=== PATIENT | male | born 1930 | race Caucasian/White ===

== ENCOUNTER → 2017-05-27 | Outpatient (CLI) | payer OTHER, BC ==
[~2017-05-27] MED LIST: ASPI325T45 PO; OPTIRAY 320 IV PRN; ROSU20TA PO; [UNRECOGNIZED DRUG - REMARK] PO
--- NOTE | 2017-05-27 15:00 | DIAGNOSTIC IMAGING REPORT ---
ABD/PELVIS IV AND ORAL CONT HISTORY: 87 years-old Male C61 Prostate [id number] metastatic survey in a patient with history of prostate cancer. Initial exam. COMPARISON: None available. TECHNIQUE: Multiple axial CT images of the abdomen and pelvis were obtained along the intravenous administration of 93 mL Optiray 320. Oral contrast was also used. A dose lowering technique was used consistent with the principals of SEPIDEH. FINDINGS: Small right Bochdalek hernia. Groundglass opacities of the lung bases suggest atelectasis. There is no pneumoperitoneum. Prior median sternotomy. The heart is mildly enlarged with coronary arterial calcifications. Circumscribed low attenuating 6 mm lesion of the lateral left hepatic lobe seen on image 13 is nonspecific and suggests hepatic cysts. The liver is otherwise unremarkable. The spleen, pancreas and adrenal glands are within normal limits. There is vicarious excretion of contrast from mildly contracted gallbladder. The kidneys and ureters are unremarkable. Prostate is enlarged causing mass effect upon the floor of the urinary bladder contains central coarse calcifications. Bilateral fat filled hernias, left greater than right. There is moderate atherosclerotic plaquing of the abdominal aorta with a linear calcified structure along left aspect of the infrarenal abdominal aorta suspicious for chronic dissection on image 155. Similar changes are seen on image 190 the axial series. No bulky adenopathy identified to suggest metastasis. A few small left iliac chain lymph nodes are seen measuring up to 6 mm in short axis as seen on image 274. There is a small sliding-type hiatal hernia. No bowel obstruction or focal bowel wall thickening. Colonic diverticulosis without evidence of diverticulitis. Soft tissues are unremarkable. Prior left hemilaminectomy changes noted at L5-S1. No blastic bony lesions are seen to suggest metastasis. Multilevel advanced degenerative changes of the spine. IMPRESSION: 1. No acute intra-abdominal or intrapelvic abnormality identified. No definite evidence of metastatic disease. 2. Prostatomegaly with mass effect upon the floor of the urinary bladder. 3. A few scattered nonenlarged nonspecific left iliac chain lymph nodes are seen as above. No pathologically enlarged lymph nodes identified. 4. Circumscribed 6 mm low attenuating lesion of the lateral left hepatic lobe is nonspecific and suggests cyst. Attention at follow-up recommended. 5. Incidental findings include small sliding-type hiatal hernia, colonic diverticulosis without diverticulitis and prior left hemilaminectomy changes at L5-S1. The above report was generated using voice recognition software. It may contain grammatical, syntax or spelling errors. Electronically signed by: Carlos Elise M.D. 05/27/2017 2:58 PM Dictated Date/Time: 05/27/2017 2:50 PM
--- NOTE | 2017-05-27 15:38 | DIAGNOSTIC IMAGING REPORT ---
BONE SCAN WHOLE BODY CLINICAL HISTORY: Prostate cancer. COMPARISON STUDY: CT of the abdomen and pelvis May 27, 2017. TECHNIQUE: 25.1 mCi of technetium 99m MDP was injected IV at 11:48 AM on May 27, 2017. 3 hours following injection, whole body imaging was performed in the anterior and posterior projections. FINDINGS: Expected soft tissue and renal uptake is identified. Uptake within the shoulders, sternoclavicular joints and feet is degenerative. Moderate uptake within the left aspect of the spine at the L2-L3 level corresponds to disc space narrowing and osteophytosis on CT performed earlier today. Multifocal uptake within the lower cervical and thoracic spine is nonspecific but likely degenerative. No suspicious radiotracer uptake is identified. IMPRESSION: 1. No convincing scintigraphic evidence of skeletal metastatic disease. 2. Moderate multifocal uptake within the cervical and thoracic spine. Although indeterminate, this is likely degenerative. Electronically signed by: Lev Trinh M.D. 05/27/2017 3:36 PM Dictated Date/Time: 05/27/2017 3:33 PM
== END | disposition home or self-care (01) ==
LOC: C.NUCL 10:57
PROVIDERS: ATTEND Urology
DX: C61 Malignant neoplasm of prostate (principal)

== ENCOUNTER → 2017-07-08 | Outpatient (CLI) | payer OTHER, BC ==
[~2017-07-08] MED LIST changes: +GADAVIST IV PRN; -OPTIRAY 320 IV PRN
--- NOTE | 2017-07-08 15:17 | DIAGNOSTIC IMAGING REPORT ---
PROSTATE MRI COMBO CLINICAL HISTORY: 87 years-old Male presenting with PROSTATE CA. TECHNIQUE: Multisequence, multiplanar MR imaging of the prostate was performed before and after the administration of 8.5 cc of Gadavist. Additional postprocessing was performed on a separate [employer] workstation by the radiologist for 3-D volumetric segmentation of the prostate and contouring of region(s) of interest (ROD) for targeting. COMPARISON: Abdominal CT dated 05/27/2017. FINDINGS: Prostate: The prostate measures 4.7 cm in transverse diameter (DynaCAD prostate boundary segmentation volume 39 mL). There are moderate to severe changes of benign prostatic hyperplasia. Precontrast T1 weighted imaging demonstrates no evidence of intrinsic T1 hyperintensity to suggest hemorrhage. Seminal vesicles normal. Suspicious lesion(s) described below: Lesion (ActeavoaCAD ROD) : Size: At least 3 cm in maximum length. T2W: There is extensive T2 hypointensity throughout the left lobe of the prostate involving both the central and peripheral zone. There is restricted diffusion and drop in signal on the ADC maps within this region. There is extracapsular extension along the left margin. DWI: 5. Focal markedly hypointense on ADC and markedly hyperintense on high b-value DWI. DCE: Negative. No early enhancement. PI-RADS: 5. Clinically significant cancer is highly likely to present. Bladder: The bladder wall is thickened and trabeculated consistent with chronic outlet obstruction. Bowel: There is advanced diverticulosis of the visualized sigmoid colon without MRI evidence of acute diverticulitis. Peritoneum: No free fluid in the pelvis. Lymph nodes: No lymphadenopathy in the visualized portion of the pelvis. Vasculature: Iliac vessels patent. Osseous structures: No destructive bony lesion is identified. IMPRESSION: 1. A large lesion is seen throughout the left lobe of the gland involving both the peripheral and transitional zones. This is consistent with the patient's biopsy-proven tumor. Extracapsular extension is seen along the left prostatic border. 2. No pelvic adenopathy is identified. 3. Moderate to severe changes of benign prostatic hyperplasia. Electronically signed by: Naif Mcmahon M.D. 07/08/2017 3:16 PM Dictated Date/Time: 07/08/2017 2:45 PM
== END | disposition home or self-care (01) ==
LOC: C.MRIBC 11:52
PROVIDERS: ATTEND Radiology Radiation Oncology
DX: C61 Malignant neoplasm of prostate (principal)

== ENCOUNTER 2017-08-26 12:43 | Inpatient (IN) | payer OTHER, BC ==
[~2017-08-26] VITALS: Ht 170.2 cm; Wt 86.4 kg
[~2017-08-26 12:43] MED LIST changes: -GADAVIST IV PRN
[2017-08-26] MEDS ORDERED: SODIUM CHLORIDE 0.9% 1000ML 250 ML IV ONE (13:21)
[2017-08-26] MEDS ORDERED: PIPERACILLIN/TAZOBACTAM 4.5 GM/100ML D5W IV STA (13:28)
[2017-08-26] MEDS ORDERED: ACETAMINOPHEN 325 MG TAB PO ONE (13:30)
--- NOTE | 2017-08-26 14:00 | DIAGNOSTIC IMAGING REPORT ---
CHEST ONE VIEW PORTABLE HISTORY: 87 years-old Male Sepsis acute sepsis with weakness COMPARISON: CT abdomen and pelvis 05/27/2017 TECHNIQUE: Portable AP view of the chest FINDINGS: Cardiac silhouette is within normal limits in size. Prior median sternotomy. Surgical clips project over the left mediastinum. No pneumothorax, pleural effusion or focal airspace consolidation. Minimal subsegmental linear opacities of the left lung base suggest areas of atelectasis or scarring. The bones appear grossly intact. IMPRESSION: No acute cardiopulmonary process. The above report was generated using voice recognition software. It may contain grammatical, syntax or spelling errors. Electronically signed by: Carlos Elise M.D. 08/26/2017 1:59 PM Dictated Date/Time: 08/26/2017 1:58 PM
--- NOTE | 2017-08-26 14:06 | EMERGENCY ROOM VISIT NOTE ---
History Report prepared by Tamiko: Mayuri Briggs Under the Supervision of: Dr. Andressa March M.D. First contact with patient: 13:20 Chief Complaint: WEAKNESS Stated Complaint: WEAK, TIRED, DISORIENTED, POSS DEHYDRATED Nursing Triage Summary: Weakness since last night. Diarrhea x3 days. Febrile in triage. History of Present Illness The patient is an 87 year old male who presents to the Emergency Room with complaints of persistent weakness that began prior to arrival. Per the patient he was sent home from work today, noting that he was told he was not acting and did not look his "normal self." He states that he typically self-caths several times daily, but notes that he is unsure of previous UTIs. The patient's son notes that the patient is currently undergoing radiation treatment for prostate cancer. He states that one week ago the patient developed hematuria, but after consulting his doctors, they told the patient to only be concerned if the symptoms persisted. The patient states that this morning he again began experience hematuria. He states that he has been experiencing recent diarrhea. The patient's son notes that the patient was "mentally slow" this morning. 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 He denies any chest pain, shortness of breath, nausea, or back pain. The patient denies any tobacco use. Source of History: patient Onset: prior to arrival Position: other (global) Quality: other (weakness) Timing: other (persistent) Associated Symptoms: + urinary symptoms (hematuria) Note: Associated Symptoms: Mentally slow Review of Systems See HPI for pertinent positives & negatives. A total of 10 systems reviewed and were otherwise negative. Past Medical & Surgical Medical Problems: (1) Prostate cancer (2) Sepsis (3) Weakness Surgical Problems: (1) Hx of CABG Family History Noncontributory secondary to age. Social History Smoking Status: Never Smoker Marital Status: Occupation Status: employed, retired Current/Historical Medications Scheduled Aspirin (Aspirin), 1 TAB PO QAM Rosuvastatin Calcium (Crestor), 1 TAB PO HS [Fiber Pill], 2 TABS PO BID Allergies Coded Allergies: No Known Allergies (Unverified , 08/26/17) Physical Exam Vital Signs Date Time Temp Pulse Resp B/P (MAP) Pulse Ox O2 Delivery O2 Flow Rate FiO2 08/26/17 15:02 37.7 08/26/17 14:39 38.7 88 18 155/90 92 Room Air 08/26/17 14:02 88 08/26/17 13:50 92 Room Air 08/26/17 12:44 39.3 91 20 175/71 95 Room Air Physical Exam Vital signs reviewed. General: Elderly, somewhat ill appearing male in no significant distress. Warm to touch. HEENT: No scleral icterus, PERRLA, neck supple. Atraumatic. Cardiovascular: Regular rate and rhythm, no extra sounds. Pulmonary: Clear to auscultation bilaterally, normal work of breathing. Abdomen: Soft, nontender, nondistended, positive bowel sounds. Musculoskeletal: Atraumatic, no peripheral edema. Neurologic: Patient awake alert and oriented x 3, equal strength in all 4 extremities. Cranial nerves 2 through 12 grossly intact. Skin: Warm, dry, no rash Medical Decision & Procedures ER Provider Diagnostic Interpretation: X-ray results as stated below per interpretation by me and the radiologist: CHEST ONE VIEW PORTABLE HISTORY: 87 years-old Male Sepsis acute sepsis with weakness COMPARISON: CT abdomen and pelvis 05/27/2017 TECHNIQUE: Portable AP view of the chest FINDINGS: Cardiac silhouette is within normal limits in size. Prior median sternotomy. Surgical clips project over the left mediastinum. No pneumothorax, pleural effusion or focal airspace consolidation. Minimal subsegmental linear opacities of the left lung base suggest areas of atelectasis or scarring. The bones appear grossly intact. IMPRESSION: No acute cardiopulmonary process. The above report was generated using voice recognition software. It may contain grammatical, syntax or spelling errors. Electronically signed by: Carlos Elise M.D. 08/26/2017 1:59 PM Dictated Date/Time: 08/26/2017 1:58 PM Laboratory Results Test 08/26/17 14:05 08/26/17 14:09 08/26/17 14:25 08/26/17 15:00 Immature Granulocyte % (Auto) 0.5 % White Blood Count 9.97 K/uL (4.8-10.8) Red Blood Count 4.04 M/uL (4.7-6.1) Hemoglobin 13.8 g/dL (14.0-18.0) Hematocrit 40.2 % (42-52) Mean Corpuscular Volume 99.5 fL (80-100) Mean Corpuscular Hemoglobin 34.2 pg (25-34) Mean Corpuscular Hemoglobin Concent 34.3 g/dl (32-36) Platelet Count 121 K/uL (130-400) Mean Platelet Volume 11.0 fL (7.4-10.4) Neutrophils (%) (Auto) 91.3 % Lymphocytes (%) (Auto) 2.2 % Monocytes (%) (Auto) 6.0 % Eosinophils (%) (Auto) 0.0 % Basophils (%) (Auto) 0.0 % Neutrophils # (Auto) 9.10 K/uL (1.4-6.5) Lymphocytes # (Auto) 0.22 K/uL (1.2-3.4) Monocytes # (Auto) 0.60 K/uL (0.11-0.59) Eosinophils # (Auto) 0.00 K/uL (0-0.5) Basophils # (Auto) 0.00 K/uL (0-0.2) Immature Granulocyte # (Auto) 0.05 K/uL (0.00-0.02) Prothrombin Time 11.2 SECONDS (9.0-12.0) Prothromb Time International Ratio 1.1 (0.9-1.1) Activated Partial Thromboplast Time 25.2 SECONDS (21.0-31.0) Partial Thromboplastin Ratio 1.0 Total Bilirubin 0.9 mg/dl (0.2-1) Alanine Aminotransferase (ALT/SGPT) 21 U/L (12-78) Alkaline Phosphatase 42 U/L (45-117) Total Protein 7.2 gm/dl (6.4-8.2) Albumin 3.5 gm/dl (3.4-5.0) Globulin 3.7 gm/dl (2.5-4.0) Albumin/Globulin Ratio 0.9 (0.9-2) Bedside Lactic Acid Venous 1.45 mmol/L (0.90-1.70) Urine Color DK YELLOW Urine Appearance CLEAR (CLEAR) Urine pH 5.5 (4.5-7.5) Urine Specific [place] 1.021 (1.000-1.030) Urine Protein 2+ (NEG) Urine Glucose (UA) NEG (NEG) Urine Ketones TRACE (NEG) Urine Occult Blood 3+ (NEG) Urine Nitrite NEG (NEG) Urine Bilirubin NEG (NEG) Urine Urobilinogen NEG (NEG) Urine Leukocyte Esterase SMALL (NEG) Urine WBC (Auto) 10-30 /hpf (0-5) Urine RBC (Auto) >30 /hpf (0-4) Urine Hyaline Casts (Auto) 1-5 /lpf (0-5) Urine Epithelial Cells (Auto) >30 /lpf (0-5) Urine Bacteria (Auto) NEG (NEG) Urine Renal Epithelial Cells /lpf (0-5) Urine Mucus PRESENT (NONE PRSENT) Influenza Type A (RT-PCR) Neg for Influ A (NEG) Influenza Type B (RT-PCR) Neg for Influ B (NEG) Test 08/26/17 15:11 Aspartate Amino Transf (AST/SGOT) 19 U/L (15-37) Procalcitonin 0.49 ng/ml (0-0.5) Laboratory results per my review. Medications Administered Medications (Trade) Dose Ordered Sig/Jacy Route Start Time Stop Time Status Last Admin Dose Admin Sodium Chloride 250 ml @ 999 mls/hr Q16M ONCE IV 08/26/17 13:21 08/26/17 13:36 DC 08/26/17 14:33 999 MLS/HR Acetaminophen (Tylenol Tab) 650 mg ONE ONCE PO 08/26/17 13:30 08/26/17 13:31 DC 08/26/17 14:37 650 MG Piperacillin Sod/ Tazobactam Sod (Zosyn Iv) 4.5 gm NOW STAT IV 08/26/17 13:28 08/26/17 13:30 DC 08/26/17 14:34 4.5 GM Acetaminophen (Tylenol Tab) 650 mg Q4H PRN PO 08/26/17 16:15 09/25/17 16:14 08/28/17 00:21 650 MG ECG Indication: weakness Rate (beats per minute): 89 Rhythm: normal sinus Findings: no acute ischemic change, no ectopy, other (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 The patient was evaluated in room A10. A complete history and physical examination was performed. Medical Decision Differential diagnosis: Etiologies such as viral syndrome, otitis, pharyngitis, pneumonia, influenza, meningitis, urinary tract infection, sepsis, bacteremia, as well as others were entertained. This pt was evaluated and appeared to be in no distress. IV access was obtained and lab work was drawn. Pt was hydrated with 250 mL saline bolus. UA indicates infection. Pt was given tylenol with improvement in symptoms and fever. He was given IV zosyn for initial coverage. Although VSS at this time and pt has normal WBC, given advanced elderly age and fever, I feel he warrants hospitalization for further management. He and his son were made aware of the findings and agree with the plan. Case was d/w the hospitalist service for further care. Medication Reconcilliation Current Medication List: was personally reviewed by me Blood Pressure Screening Patient's blood pressure: Elevated blood pressure Referred to the hospitalist. Impression Primary Impression: UTI (urinary tract infection) Additional Impression: Fever Scribe Attestation The scribe's documentation has been prepared under my direction and personally reviewed by me in its entirety. I confirm that the note above accurately reflects all work, treatment, procedures, and medical decision making performed by me. Departure Information Referrals Colby White PA-C (PCP) Patient Instructions My [facility] Problem Qualifiers
[2017-08-26 14:21] LABS: COMPLETE YES; HEMATOCRIT 40.2 % (42-52); IG% 0.5 %; LYMPH % 2.2 %; LYMPH ABS # 0.22 K/uL (1.2-3.4); MEAN CELL VOLUME 99.5 fL (80-100); MEAN CORPUSCULAR HEMOGLOBIN 34.2 pg (25-34); MEAN CORPUSCULAR HGB CONC 34.3 g/dl (32-36); NEUT % 91.3 %; PLATELET COUNT 121 K/uL (130-400); RED BLOOD COUNT 4.04 M/uL (4.7-6.1); WHITE BLOOD COUNT 9.97 K/uL (4.8-10.8)
[2017-08-26 14:32] LABS: INR 1.1 (0.9-1.1); PROTHROMBIN TIME (PATIENT) 11.2 SECONDS (9.0-12.0)
[2017-08-26 14:35] LABS: MANUAL MICROSCOPIC REQUIRED? NO; REVIEW REQ? YES; URINE APPEARANCE CLEAR (CLEAR); URINE BILIRUBIN NEG (NEG); URINE COLOR DK YELLOW; URINE EPITHELIAL CELL AUTO >30 /lpf (0-5); URINE NITRITE NEG (NEG); URINE PH 5.5 (4.5-7.5); URINE SPECIFIC GRAVITY 1.021 (1.000-1.030); UROBILINOGEN NEG (NEG); ZZUR CULT IF INDIC CLEAN CATCH YES
[2017-08-26 14:48] LABS: URINE MUCUS PRESENT (NONE PRSENT)
[2017-08-26 14:54] LABS: ALB/GLOB RATIO 0.9 (0.9-2); ALKALINE PHOSPHATASE 42 U/L (45-117); ALT/SGPT 21 U/L (12-78); BLOOD UREA NITROGEN 20 mg/dl (7-18); BUN/CREATININE RATIO 17.9 (10-20); CALCIUM 9.1 mg/dl (8.5-10.1); CARBON DIOXIDE 30 mmol/L (21-32); CHLORIDE 100 mmol/L (98-107); CREATININE 1.12 mg/dl (0.60-1.40); GLUCOSE 104 mg/dl (70-99); SODIUM 132 mmol/L (136-145)
[2017-08-26 15:42] LABS: POTASSIUM 3.6 mmol/L (3.5-5.1)
[2017-08-26 15:43] LABS: INFLUENZA A PCR Neg for Influ A (NEG); INFLUENZA B PCR Neg for Influ B (NEG)
[2017-08-26] MEDS ORDERED: ENOXAPARIN 40 MG/0.4 ML SYR SQ SCH (16:15)
[2017-08-26] MEDS ORDERED: POLYETHYLENE (MIRALAX) 17 GM PACK PO PRN (16:15)
[2017-08-26] MEDS ORDERED: ONDANSETRON INJ 2 MG/ML 2 ML VIAL IV PRN (16:15)
[2017-08-26] MEDS ORDERED: ALUMINUM/MAGNESIUM/SIMETH (MAALOX MAX) 30 ML UDC PO PRN (16:15)
[2017-08-26] MEDS ORDERED: MAGNESIUM HYDROXIDE SUSP 30 ML UDC PO PRN (16:15)
--- NOTE | 2017-08-26 16:35 | History and Physical ---
History & Physical Date & Time of Service: Aug 26, 2017 at 16:16 Chief Complaint: Weak, Tired, Disoriented, Poss Dehydrated Primary Care Physician: Colby White PA-C History of Present Illness Source: patient, family (son at bedside), clinic records, hospital records This is an 87 y/o male with a history of CAD s/p CABG in 2007, HLD, prostate cancer, and urinary retention who presented to the ED on 08/26 with weakness, fatigue and fever. The patient states that starting last night the patient suddenly developed weakness and fatigue. He states that he has not been eating quite as much as he used to since he started radiation treatments for his prostate cancer last week. He still went to work this morning at the [employer] store, but his coworkers noted that he was not acting himself and looked ill, so he was sent back home. The patient's son also notes that this morning the patient was more disoriented and confused than normal, and had looked very pale. The son states that the patient is currently looking much better and seems back to his normal self. The patient denies any fevers at home but in triage had a fever of 39.3C. He does note having some looser stools than normal the last few days. He also states he recently had hematuria a few days ago, but it had cleared up. This morning, his urine again seemed a bit bloody. The patient previously had an indwelling catheter due to urinary retention but did not like it, so he has been self cathing for the last 1.5 years without issue. He denies any pain with cathing, dysuria, or foul smelling urine. The patient denies fevers, chills, sweats, chest pain, palpitations, claudication, cough, wheezing, shortness of breath, nausea, vomiting, abdominal pain, dysuria , paralysis, focal motor weakness, numbness and tingling. Past Medical/Surgical History Surgical Problems: (1) Hx of CABG in 2007 Status: Resolved CAD HLD Prostate cancer--started radiation last week. Has Lupron injections q6 months' Urinary retention--straight caths prn Family History Colon cancer Liver cancer Social History Smoking Status: Former Smoker (remote history, quit over 60 years ago) Smokeless Tobacco Use: No Alcohol Use: occasionally (beer) Drug Use: none Marital Status: Housing status: lives alone Occupational Status: employed (works at [employer] store) Allergies Coded Allergies: No Known Allergies (Unverified , 08/26/17) Home Medications Scheduled Aspirin (Aspirin), 1 TAB PO QAM Rosuvastatin Calcium (Crestor), 1 TAB PO HS [Fiber Pill], 2 TABS PO BID Review of Systems Constitutional: +Generalized weakness, fatigue. No fever, No chills, No sweats Eyes: No worsening of vision, No eye pain, No diplopia ENT: No hearing loss, No nasal symptoms, No trouble swallowing Respiratory: No cough, No wheezing, No shortness of breath Cardiovascular: No chest pain, No claudication, No palpitations Abdomen: No pain, No nausea, No vomiting Musculoskeletal: No joint pain, No muscle pain, No swelling Genitourinary - Male: +Hematuria. Chronic urinary retention. No dysuria Neurologic: No paralysis, No weakness, No numbness/tingling Integumentary: No rash, No itch, No color change Physical Exam Vital Signs Date Time Temp Pulse Resp B/P (MAP) Pulse Ox O2 Delivery O2 Flow Rate FiO2 08/26/17 15:02 37.7 08/26/17 14:39 38.7 88 18 155/90 92 Room Air 08/26/17 14:02 88 08/26/17 13:50 92 Room Air 08/26/17 12:44 39.3 91 20 175/71 95 Room Air General appearance: +Obese. Well-developed, well-nourished, no apparent distress Head: Normocephalic, atraumatic Eyes: Normal inspection, PERRL, EOMI ENT: Normal ENT inspection, hearing grossly normal, pharynx normal Neck: Supple, no JVD, trachea midline Respiratory/Chest: +Diminished breath sounds throughout. Lungs clear to auscultation, no respiratory distress Cardiovascular: Regular rate & rhythm, no gallop, no murmur Abdomen/GI: Normal bowel sounds, non-tender, soft Extremities/Musculoskeletal: Normal inspection, no calf tenderness, no pedal edema Neurological/Psych: Alert, normal mood/affect, oriented x 3 Skin: Normal color, warm/dry, no rash Diagnostics Laboratory Results Results Past 24 Hours Test 08/26/17 14:05 08/26/17 14:25 08/26/17 15:00 08/26/17 15:11 Range/Units White Blood Count 9.97 4.8-10.8 K/uL Red Blood Count 4.04 4.7-6.1 M/uL Hemoglobin 13.8 14.0-18.0 g/dL Hematocrit 40.2 42-52 % Mean Corpuscular Volume 99.5 80-100 fL Mean Corpuscular Hemoglobin 34.2 25-34 pg Mean Corpuscular Hemoglobin Concent 34.3 32-36 g/dl Platelet Count 121 130-400 K/uL Mean Platelet Volume 11.0 7.4-10.4 fL Neutrophils (%) (Auto) 91.3 % Lymphocytes (%) (Auto) 2.2 % Monocytes (%) (Auto) 6.0 % Eosinophils (%) (Auto) 0.0 % Basophils (%) (Auto) 0.0 % Neutrophils # (Auto) 9.10 1.4-6.5 K/uL Lymphocytes # (Auto) 0.22 1.2-3.4 K/uL Monocytes # (Auto) 0.60 0.11-0.59 K/uL Eosinophils # (Auto) 0.00 0-0.5 K/uL Basophils # (Auto) 0.00 0-0.2 K/uL RDW Standard Deviation 46.9 36.4-46.3 fL RDW Coefficient of Variation 12.9 11.5-14.5 % Immature Granulocyte % (Auto) 0.5 % Immature Granulocyte # (Auto) 0.05 0.00-0.02 K/uL Prothrombin Time 11.2 9.0-12.0 SECONDS Prothromb Time International Ratio 1.1 0.9-1.1 Activated Partial Thromboplast Time 25.2 21.0-31.0 SECONDS Partial Thromboplastin Ratio 1.0 Sodium Level 132 136-145 mmol/L Potassium Level 3.6 3.5-5.1 mmol/L Chloride Level 100 98-107 mmol/L Carbon Dioxide Level 30 21-32 mmol/L Anion Gap 2.0 3-11 mmol/L Blood Urea Nitrogen 20 7-18 mg/dl Creatinine 1.12 0.60-1.40 mg/dl Est Creatinine Clear Calc Drug Dose 47.4 ml/min Estimated GFR () 67.1 Estimated GFR (Non- 57.9 BUN/Creatinine Ratio 17.9 10-20 Random Glucose 104 70-99 mg/dl Calcium Level 9.1 8.5-10.1 mg/dl Total Bilirubin 0.9 0.2-1 mg/dl Aspartate Amino Transf (AST/SGOT) 19 15-37 U/L Alanine Aminotransferase (ALT/SGPT) 21 12-78 U/L Alkaline Phosphatase 42 45-117 U/L Total Protein 7.2 6.4-8.2 gm/dl Albumin 3.5 3.4-5.0 gm/dl Globulin 3.7 2.5-4.0 gm/dl Albumin/Globulin Ratio 0.9 0.9-2 Urine Color DK YELLOW Urine Appearance CLEAR CLEAR Urine pH 5.5 4.5-7.5 Urine Specific Belt 1.021 1.000-1.030 Urine Protein 2+ NEG Urine Glucose (UA) NEG NEG Urine Ketones TRACE NEG Urine Occult Blood 3+ NEG Urine Nitrite NEG NEG Urine Bilirubin NEG NEG Urine Urobilinogen NEG NEG Urine Leukocyte Esterase SMALL NEG Urine WBC (Auto) 10-30 0-5 /hpf Urine RBC (Auto) >30 0-4 /hpf Urine Hyaline Casts (Auto) 1-5 0-5 /lpf Urine Epithelial Cells (Auto) >30 0-5 /lpf Urine Bacteria (Auto) NEG NEG Urine Renal Epithelial Cells 0-5 /lpf Urine Mucus PRESENT NONE PRSENT Influenza Type A (RT-PCR) Neg for Influ A NEG Influenza Type B (RT-PCR) Neg for Influ B NEG Procalcitonin 0.49 0-0.5 ng/ml Microbiology Results 08/26/17 Blood Culture, Received Pending 08/26/17 Blood Culture, Received Pending 08/26/17 Urine Culture, Received Pending Diagnostic Radiology Reviewed the following studies and agree with interpretation as follows: CHEST ONE VIEW PORTABLE HISTORY: 87 years-old Male Sepsis acute sepsis with weakness COMPARISON: CT abdomen and pelvis 05/27/2017 TECHNIQUE: Portable AP view of the chest FINDINGS: Cardiac silhouette is within normal limits in size. Prior median sternotomy. Surgical clips project over the left mediastinum. No pneumothorax, pleural effusion or focal airspace consolidation. Minimal subsegmental linear opacities of the left lung base suggest areas of atelectasis or scarring. The bones appear grossly intact. IMPRESSION: No acute cardiopulmonary process. EKG Reviewed EKG and agree with interpretation as follows: 89 bpm, NSR Impression Assessment and Plan 87 y/o male with a history of CAD s/p CABG in 2007, HLD, prostate cancer, and urinary retention who presented to the ED on 08/26 with weakness, fatigue and fever. Pt had fever of 39.3C on arrival and was tachycardic with HR at 91. BP stable. Pt recently started radiation for prostate cancer and self caths every day due to chronic urinary retention. CXR shows no acute disease. EKG no acute ischemic changes. UA positive for blood and mucus. No leukocytosis or renal impairment. Flu negative. Pt received Zosyn, Tylenol and 250 cc NSS bolus in ED. 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 Pt now alert and oriented x 3 -Admit to med/surg as pt is stable -Check ESR, CRP. Procalcitonin is pending -Check lactic acid -Urine culture and blood cultures pending -Continue Zosyn for now, can de-escalate based on response -Check C. diff due to recent diarrhea. Pt was on antibiotics about 1.5 months ago -Gentle IVF with NSS + 20 mEq KCl at 75 cc/hr as pt reports poor appetite and poor fluid intake at home Hematuria -Continue to monitor -Hgb stable at 13.8 CAD s/p CABG, HLD--stable -Continue Crestor 20 mg PO hs -Hold ASA due to hematuria Prostate cancer, urinary retention--started radiation last week, no chemo, Lupron injections q 6 months -Called radiation/oncology, spoke to Charissa Coreas PA-C: can hold off on radiation for now and reassess pt on 08/30 to see if can resume radiation treatment then. Please call Charissa on 08/30 if still admitted to discuss -Insert [place] as pt unable to void on his own DVT prophylaxis -Hold chemical prophylaxis for now due to hematuria -RANDAL larios and SCDs Code Status -Level I, FULL RESUSCITATION STATUS Level of Care Med/Surg Resuscitation Status FULL RESUSCITATION VTE Prophylaxis VTE Risk Assessment Done? Y/N: Yes Risk Level: Moderate Given or contraindicated: T.E.D. Stockings, SCD's
[2017-08-26] MEDS ORDERED: PIPERACILL/TAZOBAC CONSULT ACTIVE PRN (16:45)
[2017-08-26] MEDS ORDERED: NSS + 20MEQ KCL 1000ML 1,000 ML IV SCH (17:00)
[2017-08-26 17:48] VITALS: BP 119/73; PULSE 66; TEMP 37; O2SAT 93; Ht 170.2 cm; Wt 86.4 kg
[2017-08-26] MEDS: NSS + 20MEQ KCL 1000ML 1,000 ML IV SCH (18:13)
[2017-08-26] MEDS: PIPERACILL/TAZOBAC IV 3.375 GM in DEXTROSE 5% 100ML 100 ML IV SCH (20:33)
[2017-08-26] MEDS: CALCIUM POLYCARBOPHIL 1 TAB PO SCH (20:52)
[2017-08-26] MEDS: ROSUVASTATIN CALCIUM 20 MG TAB PO SCH (20:52)
[2017-08-26] MEDS: ACETAMINOPHEN 325 MG TAB PO PRN (23:21)
[2017-08-27] VITALS (9 sets, daily range): BP systolic 108–148; BP diastolic 66–74; PULSE 66–82; TEMP 37.2–39.1; O2SAT 92–97
[2017-08-27] MEDS: PIPERACILL/TAZOBAC IV 3.375 GM in DEXTROSE 5% 100ML 100 ML IV SCH ×2 (04:10→12:23)
[2017-08-27 06:06] LABS: HEMATOCRIT 38.5 % (42-52); MEAN CELL VOLUME 99.2 fL (80-100); MEAN CORPUSCULAR HGB CONC 34.3 g/dl (32-36); RED BLOOD COUNT 3.88 M/uL (4.7-6.1)
[2017-08-27 06:31] LABS: MEAN PLATELET VOLUME 10.7 fL (7.4-10.4); PLATELET COUNT 82 K/uL (130-400); PLT ESTIMATE DECREASED
[2017-08-27 06:44] LABS: BUN/CREATININE RATIO 21.5 (10-20); CALCIUM 8.2 mg/dl (8.5-10.1); CREATININE 1.19 mg/dl (0.60-1.40); POTASSIUM 3.6 mmol/L (3.5-5.1)
[2017-08-27] MEDS: CALCIUM POLYCARBOPHIL 1 TAB PO SCH ×2 (08:25→19:47)
[2017-08-27] MEDS: NSS + 20MEQ KCL 1000ML 1,000 ML IV SCH ×3 (08:25→20:46)
[2017-08-27] MEDS: ACETAMINOPHEN 325 MG TAB PO PRN (08:26)
[2017-08-27] MEDS ORDERED: ASPIRIN 325 MG ECTAB PO SCH (09:00)
--- NOTE | 2017-08-27 10:53 | Clinical Documentation Query ---
CLINICAL DOCUMENTATION QUERY Dr. ORTIZ, In your clinical opinion is this patient being managed for: ( ) UTI due to intermittent self catheterizations ( ) Not Agree ( ) Other explanation of clinical findings (Please Explain) ( ) Unable to determine (Please Define) ( ) Need to Discuss The medical record reflects the following clinical findings, treatment, and risk factors. Clinical Indicators:87 yo male presenting with sepsis from a presumed urinary source. Documentation reflects that pt self caths at home due to urinary retention. Treatment: Indwelling jackson placed upon admission, IV fluids, IV zosyn, pending blood and urine cx Risk Factors: age, prostate cancer with current radiation, urinary retention requiring intermittent straight caths Please clarify and document your clinical opinion in the progress notes and discharge summary. Terms such as "probable", "suspected", "likely", "questionable", "possible", or "still to be ruled out" are acceptable. IF IN AGREEMENT, YOU MUST DOCUMENT ABOVE DIAGNOSTIC STATEMENT IN DAILY PROGRESS NOTES AND DISCHARGE SUMMARY. This document is not part of the patient's record. Thank You, Mitali rIwin, RN [phone]
[2017-08-27] MEDS ORDERED: VANCOMYCIN INJ 1,000 MG in SODIUM CHLORIDE 0.9% 250ML 250 ML IV STA (11:26)
[2017-08-27] MEDS ORDERED: VANCOMYCIN CONSULT ACTIVE PRN (11:30)
--- NOTE | 2017-08-27 11:55 | Pharmacy Progress Note ---
Pharmacy Abx Initial Consult Date of Service Aug 27, 2017. Pharmacy Dosing Scope Date of Consult: 08/27/17 Consultation requested by: Dr. Kendrick Pharmacy is consulted to initiate Vancomycin IV dosing therapy for blood culture growing Gram Positive cocci x 2, order appropriate labs and adjust drug dose/frequency. Pharmacy has already been consulted on Zosyn IV therapy, which started 08/26/17. Subjective The patient is a 87 year old male admitted on Aug 26, 2017 at 16:15. Objective Height (Feet): 5 Height (Inches): 7.00 Weight (Kilograms): 87.600 Vital Signs (Past 12Hrs) Vital Signs Past 12 Hours Date Time Temp Pulse Resp B/P (MAP) Pulse Ox O2 Delivery O2 Flow Rate FiO2 08/27/17 11:11 37.2 66 20 108/66 (80) 97 Room Air 08/27/17 10:17 37.2 08/27/17 08:00 Room Air 08/27/17 07:46 37.8 72 20 125/70 (88) 92 Room Air 08/27/17 04:25 37.7 74 20 124/69 (87) 96 Room Air 08/27/17 00:23 37.7 08/27/17 00:19 39.1 82 21 124/70 (88) 94 Room Air 08/26/17 23:41 Room Air Lab Results (24Hrs) Laboratory Tests (24 Hours) Test 08/26/17 14:05 08/26/17 15:11 08/26/17 16:37 08/26/17 16:38 White Blood Count 9.97 K/uL (4.8-10.8) Red Blood Count 4.04 M/uL (4.7-6.1) L Hemoglobin 13.8 g/dL (14.0-18.0) L Hematocrit 40.2 % (42-52) L Mean Corpuscular Volume 99.5 fL (80-100) Mean Corpuscular Hemoglobin 34.2 pg (25-34) H Mean Corpuscular Hemoglobin Concent 34.3 g/dl (32-36) Platelet Count 121 K/uL (130-400) L Mean Platelet Volume 11.0 fL (7.4-10.4) H Neutrophils (%) (Auto) 91.3 % Lymphocytes (%) (Auto) 2.2 % Monocytes (%) (Auto) 6.0 % Eosinophils (%) (Auto) 0.0 % Basophils (%) (Auto) 0.0 % Neutrophils # (Auto) 9.10 K/uL (1.4-6.5) H Lymphocytes # (Auto) 0.22 K/uL (1.2-3.4) L Monocytes # (Auto) 0.60 K/uL (0.11-0.59) H Eosinophils # (Auto) 0.00 K/uL (0-0.5) Basophils # (Auto) 0.00 K/uL (0-0.2) Procalcitonin 0.49 ng/ml (0-0.5) C-Reactive Protein 15.30 mg/dl (0-0.29) H Erythrocyte Sedimentation Rate 10 mm/hr (0-14) Lactic Acid Level 0.9 mmol/L (0.4-2.0) Test 08/27/17 05:47 White Blood Count 5.40 K/uL (4.8-10.8) Micro Results Date/Time Source Procedure Growth Status 08/26/17 14:05 Blood Blood Culture - Preliminary Gram Positive Cocci Resulted 08/26/17 13:50 Blood Blood Culture - Preliminary Gram Positive Cocci Resulted 08/27/17 08:18 Stool C.difficile Toxin B Gene (PCR) - Final No C. difficile toxin B gene detected Complete 08/26/17 14:25 Urine , Clean Catch Urine Culture Pending Received Risk Factors for Resistance * Immunocompromised: h/o prostate cancer -- started radiation therapy ~1 week ago Assessment & Plan Assessment 87 year old male * h/o prostate cancer -- currently undergoing radiation therapy * self cathing for the last 1.5 years secondary to frequent urinary retention Plan Pharmacy has been consulted for treatment of Gram Positive cocci x 2 in blood ( pending sensitivities) Vancomycin IV * Loading dose: 2250 mg (25 mg/kg) * Maintenance dose: 1500 mg IV (17 mg/kg) every 24 hours * Estimated P'kinetic levels: ke= 0.0413/hr, t1/2= 17 hrs * Goal trough level for bacteremia : 15 to 20 mcg/mL * Trough level ordered for 08/30/17 before the 3rd maintenance dose (note, this will not be at steady state) Piperacillin/tazobactam (started 08/26/17 for UTI) * 4.5 g bolus administered over 30 minutes, then 3.375 g IV extended infusion every 8 hours for CrCl greater than 20 mL/min Pharmacy will continue to follow and will adjust dose/frequency and recommend de -escalation antimicrobials as necessary. Thank you.
[2017-08-27] MEDS ORDERED: VANCOMYCIN INJ 2,250 MG in SODIUM CHLORIDE 0.9% 500ML 500 ML IV SCH (12:00)
[2017-08-27] MEDS: ROSUVASTATIN CALCIUM 20 MG TAB PO SCH (20:45)
[2017-08-27] MEDS: LACTOBACILLUS ACIDOPHILUS (FLORANEX) TAB PO SCH (20:45)
[2017-08-27] MEDS ORDERED: VANCOMYCIN INJ 1,000 MG in SODIUM CHLORIDE 0.9% 250ML 250 ML IV SCH (21:00)
--- NOTE | 2017-08-27 22:02 | Progress Note ---
Subjective Date of Service: Aug 27, 2017. Subjective Pt evaluation today including: conversation w/ patient, conversation w/ family , physical exam, chart review Patient reports feeling fatigued, with ocassional subjective fevers. Patient also reports feeling fatigued. Patient denies any nausea, vomiting, diarrhea. Review of Systems Constitutional: + fever, + chills ENT: No hearing loss Respiratory: No cough, No sputum Cardiac: No chest pain Abdomen: No pain, No nausea Neurologic: No memory loss, No paralysis Endo: No fatigue Skin: No rash, No itch All Other Systems: Reviewed and Negative Medications Current Inpatient Medications Medications (Trade) Dose Ordered Sig/Jacy Route Start Time Stop Time Status Last Admin Dose Admin Acetaminophen (Tylenol Tab) 650 mg Q4H PRN PO 08/26/17 16:15 09/25/17 16:14 08/28/17 00:21 650 MG Al Hydrox/Mg Hydrox/Simethicone (Maalox Max Susp) 15 ml Q4H PRN PO 08/26/17 16:15 09/25/17 16:14 Magnesium Hydroxide (Milk Of Magnesia Susp) 30 ml Q6H PRN PO 08/26/17 16:15 09/25/17 16:14 Ondansetron HCl (Zofran Inj) 4 mg Q6H PRN IV 08/26/17 16:15 09/25/17 16:14 Rosuvastatin Calcium (Crestor Tab) 20 mg HS PO 08/26/17 21:00 09/25/17 20:59 08/27/17 20:45 20 MG Calcium Polycarbophil (Fibercon Tab) 1 tab BID PO 08/26/17 20:00 09/25/17 20:59 08/28/17 08:10 1 TAB Potassium Chloride/Sodium Chloride 1,000 ml @ 75 mls/hr [id number] IV 08/26/17 18:00 09/25/17 17:59 08/28/17 02:36 75 MLS/HR Vancomycin HCl (Consult) 1 ea UD PRN N/A 08/27/17 11:30 09/26/17 11:29 Vancomycin HCl 1500 mg/Sodium Chloride 530 ml @ 200 mls/hr Q24H IV 08/28/17 12:00 09/10/17 11:59 Lactobacillus Acidophilus (Floranex Tab) 4 tab QIDM PO 08/27/17 20:00 09/26/17 19:59 08/28/17 08:12 4 TAB Objective Vital Signs Date Time Temp Pulse Resp B/P (MAP) Pulse Ox O2 Delivery O2 Flow Rate FiO2 08/27/17 19:23 37.5 68 18 148/74 (98) 95 Room Air 08/27/17 15:40 94 Room Air 08/27/17 15:11 37.4 73 18 119/67 (84) 94 Room Air 08/27/17 11:11 37.2 66 20 108/66 (80) 97 Room Air 08/27/17 10:17 37.2 08/27/17 08:00 Room Air 08/27/17 07:46 37.8 72 20 125/70 (88) 92 Room Air 08/27/17 04:25 37.7 74 20 124/69 (87) 96 Room Air 08/27/17 00:23 37.7 08/27/17 00:19 39.1 82 21 124/70 (88) 94 Room Air 08/26/17 23:41 Room Air Physical Exam Comments: General appearance: +Obese. Well-developed, well-nourished, no apparent distress Head: Normocephalic, atraumatic Eyes: Normal inspection, PERRL, EOMI ENT: Normal ENT inspection, hearing grossly normal, pharynx normal Neck: Supple, no JVD, trachea midline Respiratory/Chest: Lungs clear to auscultation, no respiratory distress Cardiovascular: Regular rate & rhythm, no gallop, no murmur Abdomen/GI: Normal bowel sounds, non-tender, soft Extremities/Musculoskeletal: Normal inspection, no calf tenderness, no pedal edema Neurological/Psych: Alert, normal mood/affect, oriented x 3 Skin: Normal color, warm/dry, no rash Laboratory Results Last 24 Hours Test 08/27/17 05:47 White Blood Count 5.40 K/uL Red Blood Count 3.88 M/uL Hemoglobin 13.2 g/dL Hematocrit 38.5 % Mean Corpuscular Volume 99.2 fL Mean Corpuscular Hemoglobin 34.0 pg Mean Corpuscular Hemoglobin Concent 34.3 g/dl RDW Standard Deviation 46.5 fL RDW Coefficient of Variation 12.9 % Platelet Count 82 K/uL Mean Platelet Volume 10.7 fL Platelet Estimate DECREASED Sodium Level 134 mmol/L Potassium Level 3.6 mmol/L Chloride Level 103 mmol/L Carbon Dioxide Level 24 mmol/L Anion Gap 7.0 mmol/L Blood Urea Nitrogen 26 mg/dl Creatinine 1.19 mg/dl Est Creatinine Clear Calc Drug Dose 44.5 ml/min Estimated GFR () 62.4 Estimated GFR (Non- 53.8 BUN/Creatinine Ratio 21.5 Random Glucose 110 mg/dl Calcium Level 8.2 mg/dl Assessment and Plan 87 y/o male with a history of CAD s/p CABG in 2007, HLD, prostate cancer, and urinary retention who presented to the ED on 08/26 with weakness, fatigue and fever. 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 Pt now alert and oriented x 3 -Admit to med/surg as pt is stable -Clinically not improving significantly -Blood culture positive for gram positive cocci. -Placed on vanco and will continue with zosyn due to his pending urine cultures -Final Urine culture and blood cultures pending -Cont. with IVF Hematuria -Continue to monitor -Hgb stable at 13.8 CAD s/p CABG, HLD--stable -Continue Crestor 20 mg PO hs -Hold ASA due to hematuria Prostate cancer, urinary retention--started radiation last week, no chemo, Lupron injections q 6 months -Called radiation/oncology, spoke to Charissa Coreas PA-C: can hold off on radiation for now and reassess pt on 08/30 to see if can resume radiation treatment then. Please call Charissa on 08/30 if still admitted to discuss -Insert [place] as pt unable to void on his own DVT prophylaxis -Hold chemical prophylaxis for now due to hematuria -RANDAL larios and SCDs Code Status -Level I, FULL RESUSCITATION STATUS
[2017-08-28] VITALS (8 sets, daily range): BP systolic 113–158; BP diastolic 62–85; PULSE 52–75; TEMP 36.7–38.1; O2SAT 92–99
[2017-08-28] MEDS: ACETAMINOPHEN 325 MG TAB PO PRN (00:21)
[2017-08-28] MEDS: NSS + 20MEQ KCL 1000ML 1,000 ML IV SCH ×2 (02:36→19:10)
[2017-08-28 07:42] LABS: HEMATOCRIT 37.6 % (42-52); MEAN CELL VOLUME 99.5 fL (80-100); MEAN CORPUSCULAR HEMOGLOBIN 34.4 pg (25-34); MEAN CORPUSCULAR HGB CONC 34.6 g/dl (32-36); RED BLOOD COUNT 3.78 M/uL (4.7-6.1); WHITE BLOOD COUNT 3.17 K/uL (4.8-10.8)
[2017-08-28 07:48] LABS: MEAN PLATELET VOLUME 10.9 fL (7.4-10.4); PLATELET COUNT 77 K/uL (130-400)
[2017-08-28] MEDS: CALCIUM POLYCARBOPHIL 1 TAB PO SCH ×2 (08:10→20:43)
[2017-08-28] MEDS: LACTOBACILLUS ACIDOPHILUS (FLORANEX) TAB PO SCH ×4 (08:12→20:43)
[2017-08-28 08:13] LABS: BUN/CREATININE RATIO 23.8 (10-20); CALCIUM 8.4 mg/dl (8.5-10.1); CREATININE 0.96 mg/dl (0.60-1.40); POTASSIUM 3.6 mmol/L (3.5-5.1)
[2017-08-28] MEDS: VANCOMYCIN INJ 1,500 MG in SODIUM CHLORIDE 0.9% 500ML 500 ML IV SCH (12:08)
[2017-08-28] MEDS: ROSUVASTATIN CALCIUM 20 MG TAB PO SCH (20:44)
--- NOTE | 2017-08-28 21:21 | Progress Note ---
Subjective Date of Service: Aug 28, 2017. Subjective Pt evaluation today including: conversation w/ patient, physical exam, chart review, lab review 87 YO male is found watching the [employer] game. Last night patient had a liquid stool. Meds were changed (discussed in A/P) and since patient reports that this has subsided. Patient reports feeling significantly improved today. Patient denies any nausea, vomiting, diarrhea. Problem List Medical Problems: (1) Fever Status: Acute (2) UTI (urinary tract infection) Status: Acute Review of Systems Constitutional: No fever, No chills Respiratory: No cough, No sputum Cardiac: No chest pain Abdomen: No pain, No nausea Neurologic: No memory loss Psychiatric: No depression symptoms, No anhedonism Skin: No rash, No itch All Other Systems: Reviewed and Negative Medications Current Inpatient Medications Medications (Trade) Dose Ordered Sig/Jacy Route Start Time Stop Time Status Last Admin Dose Admin Acetaminophen (Tylenol Tab) 650 mg Q4H PRN PO 08/26/17 16:15 09/25/17 16:14 08/29/17 03:49 650 MG Al Hydrox/Mg Hydrox/Simethicone (Maalox Max Susp) 15 ml Q4H PRN PO 08/26/17 16:15 09/25/17 16:14 Magnesium Hydroxide (Milk Of Magnesia Susp) 30 ml Q6H PRN PO 08/26/17 16:15 09/25/17 16:14 Ondansetron HCl (Zofran Inj) 4 mg Q6H PRN IV 08/26/17 16:15 09/25/17 16:14 Rosuvastatin Calcium (Crestor Tab) 20 mg HS PO 08/26/17 21:00 09/25/17 20:59 08/28/17 20:44 20 MG Calcium Polycarbophil (Fibercon Tab) 1 tab BID PO 08/26/17 20:00 09/25/17 20:59 08/29/17 07:56 1 TAB Potassium Chloride/Sodium Chloride 1,000 ml @ 75 mls/hr [id number] IV 08/26/17 18:00 09/25/17 17:59 08/29/17 07:56 75 MLS/HR Vancomycin HCl (Consult) 1 ea UD PRN N/A 08/27/17 11:30 09/26/17 11:29 Vancomycin HCl 1500 mg/Sodium Chloride 530 ml @ 200 mls/hr Q24H IV 08/28/17 12:00 09/10/17 11:59 08/28/17 12:08 200 MLS/HR Lactobacillus Acidophilus (Floranex Tab) 4 tab QIDM PO 08/27/17 20:00 09/26/17 19:59 08/29/17 07:56 4 TAB Objective Vital Signs Date Time Temp Pulse Resp B/P (MAP) Pulse Ox O2 Delivery O2 Flow Rate FiO2 08/28/17 19:15 37.0 56 20 133/71 (91) 96 Room Air 08/28/17 16:00 Room Air 08/28/17 14:39 37.0 52 20 113/62 (79) 99 08/28/17 11:31 37.0 56 20 137/73 (94) 96 Room Air 08/28/17 08:00 Room Air 08/28/17 07:33 36.8 59 20 120/71 (87) 97 08/28/17 04:46 37.2 59 20 121/69 (86) 93 Room Air 08/28/17 00:54 36.7 08/28/17 00:20 Room Air 08/28/17 00:14 38.1 75 20 155/72 (99) 92 Room Air Physical Exam Comments: General appearance: +Obese. Well-developed, well-nourished, no apparent distress Head: Normocephalic, atraumatic Eyes: Normal inspection, PERRL, EOMI ENT: Normal ENT inspection, hearing grossly normal, pharynx normal Neck: Supple, no JVD, trachea midline Respiratory/Chest: Lungs clear to auscultation, no respiratory distress Cardiovascular: Regular rate & rhythm, no gallop, no murmur Abdomen/GI: Normal bowel sounds, non-tender, soft Extremities/Musculoskeletal: Normal inspection, no calf tenderness, no pedal edema Neurological/Psych: Alert, normal mood/affect, oriented x 3 Skin: Normal color, warm/dry, no rash Laboratory Results Last 24 Hours Test 08/28/17 07:14 White Blood Count 3.17 K/uL Red Blood Count 3.78 M/uL Hemoglobin 13.0 g/dL Hematocrit 37.6 % Mean Corpuscular Volume 99.5 fL Mean Corpuscular Hemoglobin 34.4 pg Mean Corpuscular Hemoglobin Concent 34.6 g/dl RDW Standard Deviation 47.3 fL RDW Coefficient of Variation 13.0 % Platelet Count 77 K/uL Mean Platelet Volume 10.9 fL Sodium Level 141 mmol/L Potassium Level 3.6 mmol/L Chloride Level 111 mmol/L Carbon Dioxide Level 21 mmol/L Anion Gap 9.0 mmol/L Blood Urea Nitrogen 23 mg/dl Creatinine 0.96 mg/dl Est Creatinine Clear Calc Drug Dose 54.5 ml/min Estimated GFR () 80.9 Estimated GFR (Non- 69.8 BUN/Creatinine Ratio 23.8 Random Glucose 91 mg/dl Calcium Level 8.4 mg/dl Assessment and Plan 87 y/o male with a history of CAD s/p CABG in 2007, HLD, prostate cancer, and urinary retention who presented to the ED on 08/26 with weakness, fatigue and fever. Sepsis secondary to presumed urinary source, possible prostatitis--febrile and tachycardic on arrival and with AMS per son/coworkers [employer]. Pt now alert and oriented x 3 -Admit to med/surg as pt is stable -Today patient has improved significantly. -Yesterday Cultures in urine and blood appear to show same organism. -Final cultures and sensitivity are still pending, however, will stop zosyn and continue vancomycin. -Blood culture positive for gram positive cocci. Diarrhea Subsided. Stoped zosyn and started lactobacillus. Patient appears to be improving. Hematuria -Continue to monitor -Hgb stable CAD s/p CABG, HLD--stable -Continue Crestor 20 mg PO hs -Hold ASA due to hematuria Prostate cancer, urinary retention--started radiation last week, no chemo, Lupron injections q 6 months -Called radiation/oncology, spoke to Charissa Coreas PA-C: can hold off on radiation for now and reassess pt on 08/30 to see if can resume radiation treatment then. Please call Charissa on 08/30 if still admitted to discuss -Insert York as pt unable to void on his own DVT prophylaxis -Hold chemical prophylaxis for now due to hematuria -RANDAL larios and SCDs Code Status -Level I, FULL RESUSCITATION STATUS
[2017-08-29] VITALS (9 sets, daily range): BP systolic 120–181; BP diastolic 71–77; PULSE 55–65; TEMP 36.8–38.8; O2SAT 95–97
[2017-08-29] MEDS: ACETAMINOPHEN 325 MG TAB PO PRN (03:49)
[2017-08-29 06:21] LABS: MEAN CELL VOLUME 98.7 fL (80-100); MEAN CORPUSCULAR HEMOGLOBIN 33.9 pg (25-34); MEAN CORPUSCULAR HGB CONC 34.3 g/dl (32-36); RED BLOOD COUNT 3.75 M/uL (4.7-6.1); WHITE BLOOD COUNT 3.25 K/uL (4.8-10.8)
[2017-08-29 06:26] LABS: MEAN PLATELET VOLUME 10.8 fL (7.4-10.4); PLATELET COUNT 88 K/uL (130-400)
[2017-08-29 06:57] LABS: BUN/CREATININE RATIO 20.4 (10-20); CALCIUM 8.3 mg/dl (8.5-10.1); CREATININE 0.91 mg/dl (0.60-1.40); POTASSIUM 3.9 mmol/L (3.5-5.1)
[2017-08-29] MEDS: NSS + 20MEQ KCL 1000ML 1,000 ML IV SCH (07:56)
[2017-08-29] MEDS: CALCIUM POLYCARBOPHIL 1 TAB PO SCH ×2 (07:56→20:55)
[2017-08-29] MEDS: LACTOBACILLUS ACIDOPHILUS (FLORANEX) TAB PO SCH ×4 (07:56→20:56)
[2017-08-29] MEDS: VANCOMYCIN INJ 1,500 MG in SODIUM CHLORIDE 0.9% 500ML 500 ML IV SCH (11:28)
[2017-08-29 12:46] LABS: HEMATOCRIT 40.6 % (42-52); RED BLOOD COUNT 4.06 M/uL (4.7-6.1); WHITE BLOOD COUNT 3.35 K/uL (4.8-10.8)
[2017-08-29 13:06] LABS: MEAN PLATELET VOLUME 10.9 fL (7.4-10.4); PLATELET COUNT 90 K/uL (130-400)
[2017-08-29 13:08] LABS: BASO % 0.3 %; BASO ABS # 0.01 K/uL (0-0.2); COMPLETE YES; ECHINOCYTES 2+; EOS % 1.2 %; IG% 1.2 %; LYMPH % 20.3 %; LYMPH ABS # 0.68 K/uL (1.2-3.4); MONO % 12.5 %; NEUT % 64.5 %
--- NOTE | 2017-08-29 13:58 | DIAGNOSTIC IMAGING REPORT ---
(RENAL)RETROPERITON COMP HISTORY: 87 years-old Male urosepsis acute sepsis COMPARISON: CT abdomen and pelvis 05/27/2017 TECHNIQUE: Multiple real-time sonographic images of the kidneys and urinary bladder were obtained assessing grayscale appearance and color flow FINDINGS: The right kidney measures 10.4 x 4.8 x 5.9 cm and is unremarkable without renal calculus, hydronephrosis or focal mass. Cortical medullary differentiation preserved. The left kidney measures 11.0 x 4.4 x 4.5 cm and is unremarkable without renal calculus, hydronephrosis or focal mass. Cortical medullary differentiation preserved. Urinary bladder is collapsed with Yokr catheter in place. IMPRESSION: 1. Unremarkable sonographic appearance of the bilateral kidneys without evidence of renal calculi or hydronephrosis. 2. Collapsed urinary bladder with York catheter in place The above report was generated using voice recognition software. It may contain grammatical, syntax or spelling errors. Electronically signed by: Carlos Elise M.D. 08/29/2017 1:57 PM Dictated Date/Time: 08/29/2017 1:55 PM
--- NOTE | 2017-08-29 15:46 | Progress Note ---
Subjective Date of Service: Aug 29, 2017. Subjective 87 yo male reports significant improvement. Patient only complaint is that e continues to have diarrhea. Patient denies any fever, chills, nausea vomiting. Patient reports that his stools remain loose. Patient has had about 4-5 stools in past 24 hours. No blood in stool. Problem List Medical Problems: (1) Fever Status: Acute (2) UTI (urinary tract infection) Status: Acute Review of Systems Constitutional: No fever, No chills ENT: No unusual epistaxis Respiratory: No cough, No sputum Cardiac: No chest pain, No orthopnea Abdomen: + diarrhea, No pain, No nausea Male : No dysuria Endo: No fatigue Skin: No rash All Other Systems: Reviewed and Negative Medications Current Inpatient Medications Medications (Trade) Dose Ordered Sig/Jacy Route Start Time Stop Time Status Last Admin Dose Admin Acetaminophen (Tylenol Tab) 650 mg Q4H PRN PO 08/26/17 16:15 09/25/17 16:14 08/29/17 03:49 650 MG Al Hydrox/Mg Hydrox/Simethicone (Maalox Max Susp) 15 ml Q4H PRN PO 08/26/17 16:15 09/25/17 16:14 Magnesium Hydroxide (Milk Of Magnesia Susp) 30 ml Q6H PRN PO 08/26/17 16:15 09/25/17 16:14 Ondansetron HCl (Zofran Inj) 4 mg Q6H PRN IV 08/26/17 16:15 09/25/17 16:14 Rosuvastatin Calcium (Crestor Tab) 20 mg HS PO 08/26/17 21:00 09/25/17 20:59 08/29/17 20:55 20 MG Calcium Polycarbophil (Fibercon Tab) 1 tab BID PO 08/26/17 20:00 09/25/17 20:59 08/29/17 20:55 1 TAB Potassium Chloride/Sodium Chloride 1,000 ml @ 75 mls/hr [id number] IV 08/26/17 18:00 09/25/17 17:59 08/30/17 00:57 75 MLS/HR Lactobacillus Acidophilus (Floranex Tab) 4 tab QIDM PO 08/27/17 20:00 09/26/17 19:59 08/29/17 20:56 4 TAB Amoxicillin/ Clavulanate Potassium (Augmentin Tab) 875 mg BIDM PO 08/29/17 17:00 09/12/17 16:59 08/29/17 16:43 875 MG Objective Vital Signs Date Time Temp Pulse Resp B/P (MAP) Pulse Ox O2 Delivery O2 Flow Rate FiO2 08/29/17 15:05 36.9 61 18 165/76 (105) 97 08/29/17 11:41 37.2 57 20 169/77 (107) 97 08/29/17 11:05 Room Air 08/29/17 07:52 37.1 55 18 136/75 (95) 97 08/29/17 06:04 36.9 08/29/17 04:03 37.7 55 20 147/72 (97) 95 Room Air 08/29/17 00:26 Room Air 08/28/17 23:44 37.3 64 20 158/85 (109) 94 Room Air 08/28/17 21:10 Room Air 08/28/17 19:15 37.0 56 20 133/71 (91) 96 Room Air 08/28/17 16:00 Room Air Physical Exam Comments: General appearance: +Obese. Well-developed, well-nourished, no apparent distress Head: Normocephalic, atraumatic Eyes: Normal inspection, PERRL, EOMI ENT: Normal ENT inspection, hearing grossly normal, pharynx normal Neck: Supple, no JVD, trachea midline Respiratory/Chest: Lungs clear to auscultation, no respiratory distress Cardiovascular: Regular rate & rhythm, no gallop, no murmur Abdomen/GI: Normal bowel sounds, non-tender, soft Extremities/Musculoskeletal: Normal inspection, no calf tenderness, no pedal edema Neurological/Psych: Alert, normal mood/affect, oriented x 3 Skin: Normal color, warm/dry, no rash Laboratory Results Last 24 Hours Test 08/29/17 06:02 08/29/17 12:29 White Blood Count 3.25 K/uL 3.35 K/uL Red Blood Count 3.75 M/uL 4.06 M/uL Hemoglobin 12.7 g/dL 13.8 g/dL Hematocrit 37.0 % 40.6 % Mean Corpuscular Volume 98.7 fL 100.0 fL Mean Corpuscular Hemoglobin 33.9 pg 34.0 pg Mean Corpuscular Hemoglobin Concent 34.3 g/dl 34.0 g/dl RDW Standard Deviation 46.7 fL 46.7 fL RDW Coefficient of Variation 13.0 % 12.8 % Platelet Count 88 K/uL 90 K/uL Mean Platelet Volume 10.8 fL 10.9 fL Sodium Level 140 mmol/L Potassium Level 3.9 mmol/L Chloride Level 111 mmol/L Carbon Dioxide Level 23 mmol/L Anion Gap 6.0 mmol/L Blood Urea Nitrogen 19 mg/dl Creatinine 0.91 mg/dl Est Creatinine Clear Calc Drug Dose 58.1 ml/min Estimated GFR () 86.3 Estimated GFR (Non- 74.5 BUN/Creatinine Ratio 20.4 Random Glucose 113 mg/dl Calcium Level 8.3 mg/dl Chemistry Specimen Hemolysis Neutrophils (%) (Auto) 64.5 % Lymphocytes (%) (Auto) 20.3 % Monocytes (%) (Auto) 12.5 % Eosinophils (%) (Auto) 1.2 % Basophils (%) (Auto) 0.3 % Neutrophils # (Auto) 2.16 K/uL Lymphocytes # (Auto) 0.68 K/uL Monocytes # (Auto) 0.42 K/uL Eosinophils # (Auto) 0.04 K/uL Basophils # (Auto) 0.01 K/uL Immature Granulocyte % (Auto) 1.2 % Immature Granulocyte # (Auto) 0.04 K/uL Echinocytes 2+ Assessment and Plan 87 y/o male with a history of CAD s/p CABG in 2007, HLD, prostate cancer, and urinary retention who presented to the ED on 08/26 with weakness, fatigue and fever. Sepsis secondary to presumed urinary source, possible prostatitis--febrile and tachycardic on arrival and with AMS per son/coworkers [employer]. Pt now alert and oriented x 3 -Admit to med/surg as pt is stable -Today patient has improved significantly. -Yesterday Cultures in urine and blood appear to show same organism. -Final cultures and sensitivity state Group C strep. -Placed on oral antibioitcs to complete 14 days of treatment. -Patient will be on augmentin given that the bug was rodriguez sensitive Diarrhea Initally thought that this had subsided. but is still present. Cont. IVF Stopped IV antibiotics. Cont. lactobacillus Patient clinically does not appear to have c. diff. Hematuria -Continue to monitor -Hgb stable CAD s/p CABG, HLD--stable -Continue Crestor 20 mg PO hs -Hold ASA due to hematuria Prostate cancer, urinary retention--started radiation last week, no chemo, Lupron injections q 6 months -Called radiation/oncology, spoke to Charissa Coreas PA-C: can hold off on radiation for now and reassess pt on 08/30 to see if can resume radiation treatment then. Please call Charissa on 08/30 if still admitted to discuss -Insert York as pt unable to void on his own -Patiet appears to cath himself at home to void. DVT prophylaxis -Hold chemical prophylaxis for now due to hematuria -RANDAL larios and SCDs Code Status -Level I, FULL RESUSCITATION STATUS DISP: May discharge on wednesday especially if diarrhea improves
[2017-08-29] MEDS: AMOXICILLIN/CLAVULANATE TAB 875 MG TAB PO SCH (16:43)
[2017-08-29] MEDS: ROSUVASTATIN CALCIUM 20 MG TAB PO SCH (20:55)
[2017-08-30] MEDS: NSS + 20MEQ KCL 1000ML 1,000 ML IV SCH (00:57)
[2017-08-30 04:09] VITALS: BP 129/75; PULSE 57; TEMP 37.5; O2SAT 98
[2017-08-30 07:28] LABS: CREATININE 0.82 mg/dl (0.60-1.40)
[2017-08-30 07:40] VITALS: BP 148/74; PULSE 55; TEMP 37.1; O2SAT 95
[2017-08-30] MEDS: AMOXICILLIN/CLAVULANATE TAB 875 MG TAB PO SCH ×2 (08:01→17:27)
[2017-08-30] MEDS: CALCIUM POLYCARBOPHIL 1 TAB PO SCH ×2 (08:01→20:49)
[2017-08-30] MEDS: LACTOBACILLUS ACIDOPHILUS (FLORANEX) TAB PO SCH ×4 (08:01→20:49)
[2017-08-30 11:20] VITALS: BP 152/75; PULSE 101; TEMP 36.6; O2SAT 94
[2017-08-30] MEDS ORDERED: VANCOMYCIN TROUGH ONE (11:30)
--- NOTE | 2017-08-30 12:24 | Hospitalist Progress Note ---
Hospitalist Progress Note Date of Service Aug 30, 2017. (Miladis Gonzalez PA-C) Subjective Pt evaluation today including: conversation w/ patient, physical exam, chart review, lab review, review of studies, review of inpatient medication list Voiding: jackson catheter in place Patient seen and evaluated. No acute events overnight. Reporting that he feels well. He reports the need for self-catheterization and will D/C Jackson at this time. He is due for radiation at 1430 today. He follows with Dr. Hooper as his urologist. Constitutional: No fever, No chills Respiratory: No cough, No shortness of breath Cardiovascular: No chest pain Abdomen: No pain, No nausea, No vomiting, No diarrhea, No constipation Musculoskeletal: No swelling, No calf pain Male : + problem reported (chronic urinary retention) Heme: No abnormal bleeding/bruising Skin: No rash (Miladis Gonzalez PA-C) Medications Current Inpatient Medications Medications (Trade) Dose Ordered Sig/Jacy Route Start Time Stop Time Status Last Admin Dose Admin Acetaminophen (Tylenol Tab) 650 mg Q4H PRN PO 08/26/17 16:15 09/25/17 16:14 08/29/17 03:49 650 MG Al Hydrox/Mg Hydrox/Simethicone (Maalox Max Susp) 15 ml Q4H PRN PO 08/26/17 16:15 09/25/17 16:14 Magnesium Hydroxide (Milk Of Magnesia Susp) 30 ml Q6H PRN PO 08/26/17 16:15 09/25/17 16:14 Ondansetron HCl (Zofran Inj) 4 mg Q6H PRN IV 08/26/17 16:15 09/25/17 16:14 Rosuvastatin Calcium (Crestor Tab) 20 mg HS PO 08/26/17 21:00 09/25/17 20:59 08/29/17 20:55 20 MG Calcium Polycarbophil (Fibercon Tab) 1 tab BID PO 08/26/17 20:00 09/25/17 20:59 08/30/17 08:01 1 TAB Lactobacillus Acidophilus (Floranex Tab) 4 tab QIDM PO 08/27/17 20:00 09/26/17 19:59 08/30/17 08:01 4 TAB Amoxicillin/ Clavulanate Potassium (Augmentin Tab) 875 mg BIDM PO 08/29/17 17:00 09/12/17 16:59 08/30/17 08:01 875 MG (Miladis Gonzalez PA-C) Objective Vital Signs Date Time Temp Pulse Resp B/P (MAP) Pulse Ox O2 Delivery O2 Flow Rate FiO2 08/30/17 11:20 36.6 101 20 152/75 (100) 94 Room Air 08/30/17 10:26 Room Air 08/30/17 07:40 37.1 55 20 148/74 (98) 95 Room Air 08/30/17 04:09 37.5 57 18 129/75 (93) 98 Room Air 08/30/17 00:13 Room Air 08/29/17 23:45 37.4 56 20 120/72 (88) 95 Room Air 08/29/17 23:26 36.8 58 16 131/71 (91) 95 Room Air 08/29/17 19:34 37.2 65 20 181/77 (111) 97 Room Air 08/29/17 16:00 97 Room Air 08/29/17 15:05 36.9 61 18 165/76 (105) 97 (Miladis Gonzalez PA-C) Physical Exam General Appearance: WD/WN, no apparent distress Eyes: sclerae normal ENT: hearing grossly normal Neck: supple, no JVD, trachea midline Respiratory/Chest: lungs clear, normal breath sounds, no respiratory distress, no accessory muscle use Cardiovascular: regular rate, rhythm, no gallop, no murmur Abdomen: normal bowel sounds, non tender, soft Extremities: no pedal edema, no calf tenderness Neurologic/Psychiatric: alert, oriented x 3 Skin: normal color, warm/dry (Miladis Gonzalez PA-C) Laboratory Results Last 24 Hours Test 08/29/17 12:29 08/30/17 06:44 White Blood Count 3.35 K/uL Red Blood Count 4.06 M/uL Hemoglobin 13.8 g/dL Hematocrit 40.6 % Mean Corpuscular Volume 100.0 fL Mean Corpuscular Hemoglobin 34.0 pg Mean Corpuscular Hemoglobin Concent 34.0 g/dl Platelet Count 90 K/uL Mean Platelet Volume 10.9 fL Neutrophils (%) (Auto) 64.5 % Lymphocytes (%) (Auto) 20.3 % Monocytes (%) (Auto) 12.5 % Eosinophils (%) (Auto) 1.2 % Basophils (%) (Auto) 0.3 % Neutrophils # (Auto) 2.16 K/uL Lymphocytes # (Auto) 0.68 K/uL Monocytes # (Auto) 0.42 K/uL Eosinophils # (Auto) 0.04 K/uL Basophils # (Auto) 0.01 K/uL RDW Standard Deviation 46.7 fL RDW Coefficient of Variation 12.8 % Immature Granulocyte % (Auto) 1.2 % Immature Granulocyte # (Auto) 0.04 K/uL Echinocytes 2+ Creatinine 0.82 mg/dl Est Creatinine Clear Calc Drug Dose 64.7 ml/min Estimated GFR () 90.9 Estimated GFR (Non- 78.4 (Miladis Gonzalez, PA-C) Assessment and Plan 87 y/o male with a history of CAD s/p CABG in 2007, HLD, prostate cancer, and urinary retention who presented to the ED on 08/26 with weakness, fatigue and fever. Sepsis POA 2/2 Possible Urinary Source/Prostatitis and Bacteremia: Group C Strep - Repeat BCx for sterility and obtain echo to R/O vegetations - Augmentin 875 mg BID Diarrhea: - C. Diff negative - Continue probiotics Hematuria: STABLE - Continue to monitor and monitor H&H CAD S/P CABG: STABLE - Crestor 20 mg HS Prostate CA with Chronic Urinary Retention: - Plan for radiation on 08/30; gets Lupron inj [id number] - D/C Jackson and allow to straight cath - follows with Dr. Hooper Pancytopenia: STABLE DVT Prophylaxis: RANDAL/SCDs Code Status: FULL RESUSCITATION Disposition: - Will help coordinate ride with son; likely D/C tomorrow Continued [facility] stay due to: multiple IV medications needed Discharge planning: home (Miladis Gonzalez, PA-C) I personally examined pt and verified all puentes points w Katelyn Gonzalez PAC feeling ok notes that he's still having some diarrhea but slowing down for XRT today lives alone and son lives [place] from here vitals noted nad breathing unlabored no pallor or icterus UTI / possible prostatitis w sepsis and bacteremia present on admission - now doing much better, repeat blood cultures ordered, echo pending, augmentin likely for 2wks unless worrisome results from repeat cultures or echo (Jarrett Bhagat D.O.)
--- NOTE | 2017-08-30 12:45 | ECHOCARDIOGRAM REPORT ---
*NOTICE TO RECEIVING CONSTITUTION PARTY AGENCY This information is strictly Confidential and protected under [place] law. [place] law prohibits you from making any further disclosure of this information unless further disclosure is expressly permitted by the written consent of the person to whom it pertains or is authorized by law. A general authorization for the release of medical or other information is not sufficient for this purpose. Hospital accepts no responsibility if the information is made available to any other person, INCLUDING THE PATIENT. Interpretation Summary * Name: AMIRA ROBERSON Study Date: 08/29/2017 01:26 PM BP: 169/77 mmHg * Patient Location: .4E\S\E416\S\1 HR: 66 * : 1930 (M/d/yyyy) Gender: Male Height: 67 in * Age: 87 yrs Ethnicity: [place] Weight: 192 lb * Ordering Physician: Nils Kendrick * Referring Physician: Self, Referred * Performed By: James Hawthorne RDCS * * Reason For Study: Bacteremia / checking for valvulopathies * BSA: 2.0 m2 * -- Conclusions - * Left ventricular systolic function is normal. * Possible small area of akinesis involving the proximal inferior wall. * Ejection Fraction = 55-60%. * There is borderline concentric left ventricular hypertrophy. * Grade I diastolic dysfunction, (abnormal relaxation pattern). * There is mild mitral regurgitation. * There is mild tricuspid regurgitation. * No obvious valvular vegetation. Procedure Details * A two-dimensional transthoracic echocardiogram with M-mode and Doppler was performed. * The study was technically adequate. Left Ventricle * The left ventricle is normal in size. * There is borderline concentric left ventricular hypertrophy. * Ejection Fraction = 55-60%. * Left ventricular systolic function is normal. * Possible small area of akinesis involving the proximal inferior wall. Right Ventricle * The right ventricle is not well visualized. * The right ventricular systolic function is normal as assessed by tricuspid annular plane systolic excursion (TAPSE) (normal >1.5 cm). Atria * The left atrium is moderately dilated. * Right atrium not well visualized. * No ASD detected; PFO is not assessed. Mitral Valve * The mitral valve is normal. * There is no vegetation seen on the mitral valve. * There is no mitral valve stenosis. * There is mild mitral regurgitation. Tricuspid Valve * The tricuspid valve anatomy is normal. * There is no tricuspid valve prolapse. * There is no tricuspid stenosis. * There is mild tricuspid regurgitation. Aortic Valve * The aortic valve is trileaflet. * The aortic valve opens well. * Aortic valve sclerosis mild, without significant aortic valvular stenosis. * There is no aortic valvular vegetation. * There is no significant aortic regurgitation. Pulmonic Valve * The pulmonary valve is not well seen, but the Doppler examination is normal without significant regurgitation or stenosis. Great Vessels * Borderline aortic root dilatation. * The pulmonary is not well visualized. Pericardium/Pleural * There is no pericardial effusion. Great Vessels * Normal inferior vena cava size and collapsability with sniff indicates a normal right atrial pressure of 3 mmHg Left Ventricular Diastolic Function * Grade I diastolic dysfunction, (abnormal relaxation pattern). MMode 2D Measurements and Calculations IVSd 0.86 cm IVSs 1.2 cm LVIDd 5.0 cm LVIDs 3.6 cm LVPWd 0.83 cm LVPWs 1.2 cm IVS/LVPW 1.0 FS 28.2 % EDV(Teich) 116.8 ml ESV(Teich) 53.5 ml EF(Teich) 54.2 % EDV(cubed) 123.0 ml ESV(cubed) 45.6 ml EF(cubed) 62.9 % % IVS thick 34.1 % % LVPW thick 39.5 % LV mass(C)d 144.5 grams LV mass(C)dI 72.7 grams/m\S\2 LV mass(C)s 132.2 grams LV mass(C)sI 66.5 grams/m\S\2 SV(Teich) 63.3 ml SI(Teich) 31.9 ml/m\S\2 SV(cubed) 77.4 ml SI(cubed) 39.0 ml/m\S\2 Ao root diam 3.3 cm Ao root area 8.3 cm\S\2 ACS 1.7 cm LA dimension 4.0 cm asc Aorta Diam 3.0 cm LA/Ao 1.2 LVOT diam 2.0 cm LVOT area 3.3 cm\S\2 LVAd ap4 24.4 cm\S\2 LVLd ap4 8.5 cm EDV(MOD-sp4) 57.9 ml EDV(sp4-el) 59.3 ml LVAs ap4 12.1 cm\S\2 LVLs ap4 7.2 cm ESV(MOD-sp4) 17.1 ml ESV(sp4-el) 17.2 ml EF(MOD-sp4) 70.5 % EF(sp4-el) 71.0 % LVAd ap2 17.6 cm\S\2 LVLd ap2 8.5 cm EDV(MOD-sp2) 30.4 ml EDV(sp2-el) 31.2 ml LVAs ap2 8.2 cm\S\2 LVLs ap2 6.2 cm ESV(MOD-sp2) 9.3 ml ESV(sp2-el) 9.1 ml EF(MOD-sp2) 69.3 % EF(sp2-el) 70.8 % LVLd %diff -0.67 % EDV(MOD-bp) 41.8 ml LVLs %diff -15.84 % ESV(MOD-bp) 13.3 ml EF(MOD-bp) 68.1 % SV(MOD-sp4) 40.8 ml SI(MOD-sp4) 20.6 ml/m\S\2 SV(MOD-sp2) 21.1 ml SI(MOD-sp2) 10.6 ml/m\S\2 SV(MOD-bp) 28.5 ml SI(MOD-bp) 14.3 ml/m\S\2 SV(sp4-el) 42.1 ml SI(sp4-el) 21.2 ml/m\S\2 SV(sp2-el) 22.1 ml SI(sp2-el) 11.1 ml/m\S\2 Doppler Measurements and Calculations MV E max christiano 110.0 cm/sec MV A max christiano 133.6 cm/sec MV E/A 0.82 MV dec time 0.22 sec Ao V2 max 142.7 cm/sec Ao max PG 8.1 mmHg Ao max PG (full) 3.7 mmHg NORMA(V,A) 2.4 cm\S\2 NORMA(V,D) 2.4 cm\S\2 LV V1 max PG 4.5 mmHg LV V1 max 105.8 cm/sec PA V2 max 107.7 cm/sec PA max PG 4.6 mmHg PI end-d christiano 147.5 cm/sec TR max christiano 277.8 cm/sec
[2017-08-30 15:27] VITALS: BP 176/73; PULSE 50; TEMP 37; O2SAT 97
[2017-08-30 19:19] VITALS: BP 158/75; PULSE 64; TEMP 36.9; O2SAT 93
[2017-08-30] MEDS: ROSUVASTATIN CALCIUM 20 MG TAB PO SCH (20:49)
[2017-08-30 23:15] VITALS: BP 134/68; PULSE 59; TEMP 37.5; O2SAT 97
[2017-08-31 04:18] VITALS: BP 152/74; PULSE 62; TEMP 37.4; O2SAT 94
[2017-08-31 06:43] LABS: MEAN CELL VOLUME 97.3 fL (80-100); MEAN CORPUSCULAR HEMOGLOBIN 33.8 pg (25-34); MEAN CORPUSCULAR HGB CONC 34.7 g/dl (32-36); WHITE BLOOD COUNT 5.52 K/uL (4.8-10.8)
[2017-08-31 06:54] LABS: MEAN PLATELET VOLUME 10.6 fL (7.4-10.4); PLATELET COUNT 97 K/uL (130-400)
[2017-08-31 07:11] LABS: BUN/CREATININE RATIO 13.1 (10-20); CALCIUM 8.3 mg/dl (8.5-10.1); CREATININE 0.77 mg/dl (0.60-1.40); POTASSIUM 3.5 mmol/L (3.5-5.1)
[2017-08-31 07:14] VITALS: BP 136/76; PULSE 60; TEMP 37.5; O2SAT 93
[2017-08-31] MEDS: LACTOBACILLUS ACIDOPHILUS (FLORANEX) TAB PO SCH ×2 (07:59→12:13)
[2017-08-31] MEDS: AMOXICILLIN/CLAVULANATE TAB 875 MG TAB PO SCH (07:59)
[2017-08-31] MEDS: CALCIUM POLYCARBOPHIL 1 TAB PO SCH (07:59)
[2017-08-31] MEDS ORDERED: LCTX PO (08:09)
[2017-08-31] MEDS ORDERED: AMOX1TAB43 PO (08:09)
--- NOTE | 2017-08-31 08:25 | Discharge Instructions ---
Discharge Instructions Date of Service Aug 31, 2017. Admission Reason for Admission: Sepsis, Weakness Discharge Discharge Diagnosis / Problem: Sepsis from UTI/Prostatitis with Bacteremia Discharge Goals Goal(s): Decrease discomfort, Improve function, Increase independence Activity Recommendations Activity Limitations: resume your previous activity . Instructions / Follow-Up Instructions / Follow-Up Sepsis from UTI/Prostatitis and Bacteremia: Group C Beta Strep Bacteria - Continue to use your straight catheterizations as you normally do. Continue to do this as clean as possible because it can increase your risk of urinary tract infections - You will continue Augmentin twice a day until 09/09/17. You had a dose this morning on 08/31 and will only need to take your one dose later tonight. - This antibiotic can cause some GI symptoms such as diarrhea so watch for this. You will be given a prescription for probiotics to take while you are on antibiotics. This helps keep the good bacteria in your bowels. - If your diarrhea becomes worse and have abdominal pain or fever/chills please come to the emergency room Prostate Cancer and Hematuria: - Continue your treatment as directed by your oncologist - Recommend to follow-up with your Urologist for continued monitoring - HOLD your aspirin for the next 5 days to help with the blood in your urine. Then you may resume this. - If you continue to have blood in your urine. Please discuss with your family doctor Current Hospital Diet Patient's current hospital diet: AHA Diet (Heart Healthy) Discharge Diet Recommended Diet: AHA Diet (Heart Healthy) Pending Studies Studies pending at discharge: yes List of pending studies: Follow-up Blood Cultures Medical Emergencies . Who to Call and When: Medical Emergencies: If at any time you feel your situation is an emergency, please call 911 immediately. . Non-Emergent Contact Non-Emergency issues call your: Primary Care Provider Call Non-Emergent contact if: you have a fever, your pain is concerning you, you have any medication questions . . "Provider Documentation" section prepared by Miladis Gonzalez. . VTE Core Measure Inpt VTE Proph given/why not?: Uvaldo Levin, GAGE's
[2017-08-31 11:13] VITALS: BP 134/73; PULSE 62; TEMP 37.4; O2SAT 95
[2017-08-31 14:02] VITALS: BP 137/76; PULSE 67; TEMP 36.5; O2SAT 91
[2017-08-31 14:48] VITALS: BP 137/76; PULSE 67; TEMP 36.5; O2SAT 91
--- NOTE | 2017-08-31 16:01 | Discharge Summary ---
Discharge Summary Date of Service Aug 31, 2017. Discharge Summary Admission Date: Aug 26, 2017 at 16:15 Discharge Date: Aug 31, 2017 Discharge Disposition: Home Principal Diagnosis: Sepsis from UTI/Prostatitis with Bacteremia Problems/Secondary Diagnoses: 1. CAD S/P CABG 2. HLD 3. Prostate CA - Current Radiation Therapy and Lupron Injections Q6M 4. Chronic Urinary Retention with PRN Straight Cath Procedures: CHEST ONE VIEW PORTABLE FINDINGS: Cardiac silhouette is within normal limits in size. Prior median sternotomy. Surgical clips project over the left mediastinum. No pneumothorax, pleural effusion or focal airspace consolidation. Minimal subsegmental linear opacities of the left lung base suggest areas of atelectasis or scarring. The bones appear grossly intact. IMPRESSION: No acute cardiopulmonary process. (RENAL)RETROPERITON COMP FINDINGS: The right kidney measures 10.4 x 4.8 x 5.9 cm and is unremarkable without renal calculus, hydronephrosis or focal mass. Cortical medullary differentiation preserved. The left kidney measures 11.0 x 4.4 x 4.5 cm and is unremarkable without renal calculus, hydronephrosis or focal mass. Cortical medullary differentiation preserved. Urinary bladder is collapsed with York catheter in place. IMPRESSION: 1. Unremarkable sonographic appearance of the bilateral kidneys without evidence of renal calculi or hydronephrosis. 2. Collapsed urinary bladder with York catheter in place ECHOCARDIOGRAM * -- Conclusions * Left ventricular systolic function is normal. * Possible small area of akinesis involving the proximal inferior wall. * Ejection Fraction = 55-60%. * There is borderline concentric left ventricular hypertrophy. * Grade I diastolic dysfunction, (abnormal relaxation pattern). * There is mild mitral regurgitation. * There is mild tricuspid regurgitation. * No obvious valvular vegetation. Consultations: 1. Radiation Therapy Medication Reconciliation New Medications: Amoxicillin & Pot Clavulanate (Amoxicillin/Clavulanate P) 1 Tab Tab 875 MG PO BIDM, #19 TAB Take one dose this evening on 08/31 then resume twice a day on 09/01 Lactobacillus Acidophilus (Floranex) 1 Tab Tab 4 TAB PO QIDM for 14 Days, TAB Continued Medications: Aspirin (Aspirin) 325 Mg Tab 1 TAB PO QAM Rosuvastatin Calcium (Crestor) 20 Mg Tab 1 TAB PO HS [Fiber Pill] () 2 TABS PO BID Discharge Exam Review of Systems: Constitutional: No fever, No chills ENT: No nasal symptoms, No sore throat, No trouble swallowing Respiratory: No cough, No shortness of breath Cardiovascular: No chest pain Abdomen: + problem reported (one loose BM today), No pain, No nausea, No vomiting, No diarrhea, No constipation Musculoskeletal: No swelling, No calf pain Genitourinary - Male: + urinary retention (chronic) Hematologic / Lymphatic: No abnormal bleeding/bruising Integumentary: No rash Physical Exam: General Appearance: WD/WN, no apparent distress Eyes: sclerae normal ENT: hearing grossly normal Neck: supple, no JVD, trachea midline Respiratory/Chest: lungs clear, normal breath sounds, no respiratory distress, no accessory muscle use Cardiovascular: regular rate, rhythm, no gallop, no murmur Abdomen / GI: normal bowel sounds, non tender, soft Extremities: no calf tenderness, no pedal edema Neurologic/Psychiatric: alert, oriented x 3 Skin: normal color, warm/dry Hospital Course ADMISSION: This is an 87 y/o male with a history of CAD s/p CABG in 2007, HLD, prostate cancer, and urinary retention who presented to the ED on 08/26 with weakness, fatigue and fever. The patient states that starting last night the patient suddenly developed weakness and fatigue. He states that he has not been eating quite as much as he used to since he started radiation treatments for his prostate cancer last week. 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 The patient's son also notes that this morning the patient was more disoriented and confused than normal, and had looked very pale. The son states that the patient is currently looking much better and seems back to his normal self. The patient denies any fevers at home but in triage had a fever of 39.3C. He does note having some looser stools than normal the last few days. He also states he recently had hematuria a few days ago, but it had cleared up. This morning, his urine again seemed a bit bloody. The patient previously had an indwelling catheter due to urinary retention but did not like it, so he has been self cathing for the last 1.5 years without issue. He denies any pain with cathing, dysuria, or foul smelling urine. The patient denies fevers, chills, sweats, chest pain, palpitations, claudication, cough, wheezing, shortness of breath, nausea, vomiting, abdominal pain, dysuria, paralysis, focal motor weakness, numbness and tingling. HOSPITAL COURSE: Mr. Herman was admitted for Sepsis from UTI/Prostatitis and Bacteremia and was growing out Group C Strep. Repeat BCx obtained to evaluate for sterility and echocardiogram obtained without signs of vegetation. He will complete Augmentin BID for a 14 day course given risk for prostatitis. Patient does self-cath but states he is very adamant to do this as cleanly as possible. He did complain of hematuria but is undergoing radiation. Hematuria appears resolved and was instructed to hold ASA for a couple days if he is having hematuria but then to resume when resolved. Follow-up appointments set for Urology and PCP. i personally examined pt and verified all puentes points w A Carlos PAC feeling better OK to go home vitals noted nad breathing unlabored no pallor or icterus bacteremia/sepsis from urinary source - no vegetations on echo no persistently positive blood cultures and pansensitive bacteria - PO augmentin for 14 days of treatment presumptively, then extend/+/- depending on his outpt f/u; stable for home, otherwise as above Total Time Spent: Greater than 30 minutes This includes examination of the patient, discharge planning, medication reconciliation, and communication with other providers. Discharge Instructions Please refer to the electronic Patient Visit Report (Discharge Instructions) for additional information. Additional Copies To Colby White PA-C
== END 2017-08-31 16:00 | disposition home or self-care (01) | DRG 872 ==
LOC: C.EDB 12:44 → C.4E 16:15 → ENRESERV 16:38
PROVIDERS: ADMIT Hospitalist; ATTEND Family Medicine
DX: A40.8 Other streptococcal sepsis (principal); N39.0 Urinary tract infection, site not specified; N41.9 Inflammatory disease of prostate, unspecified; R33.8 Other retention of urine; I25.10 Atherosclerotic heart disease of native coronary artery without angina pectoris; E78.5 Hyperlipidemia, unspecified; C61 Malignant neoplasm of prostate; R31.9 Hematuria, unspecified; R19.7 Diarrhea, unspecified; Z79.82 Long term (current) use of aspirin; Z79.899 Other long term (current) drug therapy; Z95.1 Presence of aortocoronary bypass graft; Z92.3 Personal history of irradiation; Z87.891 Personal history of nicotine dependence

== ENCOUNTER → 2017-11-17 | Outpatient (CLI) | payer OTHER, BC ==
[~2017-11-17] MED LIST changes: +CALC625T PO; +MIRA100T PO; +PSYL48.59 PO; +[UNRECOGNIZED DRUG - REMARK] PO; -[UNRECOGNIZED DRUG - REMARK] PO
[2017-11-17 13:46] VITALS: BP 171/76; PULSE 69; TEMP 36.8; O2SAT 98
--- NOTE | 2017-11-17 15:34 | Radiation Oncology Follow-Up ---
Radiation Oncology Follow-Up Date of Visit Nov 17, 2017. Reason For Visit One-month follow-up in cancer survivorship care plan Radiation Completion Date 10/20/17 Diagnosis (1) Prostate cancer Status: Acute Onset Date: 03/19/2016 Stage: ll (Biopsy stage) Permanent Comment: Rising PSA Status post ultrasound-guided biopsies 03/19/2016 [place] 4+4 Initiation of hormone suppression Hormone resistance with rising PSA to 42.9 Status post completion of radiation therapy 10/20/2017. He received 7940 cGy utilizing VMAT. Last Edited By: Wen Coreas on Nov 01, 2017 15:34 History of Present Illness Mr. Herman who initially presented with urinary retention in 2015. The patient initially went to the emergency room at [facility] did have a York catheter placed and was relieved of 1500 mL. The patient was then seen in urology. Ultimately, the patient did have a a PSA which was elevated to at least 50 as per urology records. The patient did undergo a biopsy of the prostate gland on 03/19/[address] Hooper which revealed prostate adenocarcinoma that was [place] 4+4 involving all 6 biopsy cores. The patient was started on Lupron initially due to the fact that the patient was not willing to undergo any other therapy. The patient did have a PSA in October 2016 which was 14.4. The patient did have a repeat PSA on 03/22/2017 which is 42.9. The patient did have repeat staging scans completed on 05/27/[address] of the abdomen/pelvis and a bone scan which revealed no evidence of distant metastatic disease. The patient then met again with Dr. Hooper and patient expressed interest in radiation therapy. We are now seeing the patient in consultation discuss role of radiation therapy. Options of treatment were reviewed. Ultimately he made a decision to have placement of gold fiducial markers and Space OAR. He completed treatment 10/20/2017. He received 7940 cGy. Interim History He has been doing well over the past month. He continues with the self- catheterization. He saw Dr. Hooper and was prescribed Myrbetriq. With taking this medication he is able to go longer in between catheterizations. He also periodically will void on his own. Occasionally has dysuria. Nocturia had been every 1 hour. With the medication he can go 3 hours at night without getting up. The AUA sheet and expanded prostate cancer index composite were not completed due to the urinary retention. He is not having bowel issues currently. He had some constipation during treatment. He is using Metamucil and is not having any difficulties. Prior to seeing Dr. Hooper he had a PSA on October 29, 2017. This was found to be 40.40. Allergies Coded Allergies: No Known Allergies (Unverified , 08/26/17) Home Medications Scheduled Aspirin (Aspirin), 1 TAB PO QAM Calcium Polycarbophil (Fibercon), 2 CAP PO BID Mirabegron (Myrbetriq Er), 25 MG PO noon Psyllium (Metamucil), 1 TSP PO DAILY Rosuvastatin Calcium (Crestor), 1 TAB PO HS Review of Systems Gastrointestinal: Symptoms: WNL Oral: Symptoms: No Problems Respiratory: Symptoms: WNL, SOB With Exertion Urinary: Symptoms: Pain, Burning, Nocturia Comments: "most of the time" burning/pain, CIC x 6 in 24hrs, noctur x 3-4 Skin: Symptoms: No Problems Additional Notes: He completed a distress management report and answered "no" to all questions. Physical Exam Vital Signs Date Time Temp Pulse Resp B/P (MAP) Pulse Ox O2 Delivery O2 Flow Rate FiO2 11/17/17 13:46 36.8 69 16 171/76 98 Fatigue: Mild General Appearance: no apparent distress Eyes: normal inspection, EOMI ENT: normal ENT inspection, hearing grossly normal Neck: supple, no adenopathy, thyroid normal Respiratory/Chest: lungs clear, no respiratory distress, no accessory muscle use Cardiovascular: regular rate, rhythm, no gallop, no murmur Extremities: no pedal edema Neurologic/Psychiatric: no motor/sensory deficits, alert, normal mood/affect Skin: warm/dry Lymphatic: no adenopathy Pain Management Patient Reports Pain: No Initial Pain Intensity: 0.0 Pain Management Plan He denies pain therefore requires no pain management. Laboratory Laboratory Results: not applicable Pathology Pathology Results: not applicable Imaging Imaging Studies: not applicable Assessment & Plan PSA was drawn for comparison to that which was drawn on October 29, 2017 at [facility]. These results will be forwarded to the patient and his son. He was seen today by Dr. Rocha. He continues on androgen deprivation through Dr. Hooper's office. He has a recheck appointment to see him in 6 months. We asked him to return to our office in 6 months. Today we completed a cancer survivorship care plan. A copy of the document was given to the patient. He was given a survivorship booklet. Assessment & Plan (Attending) I agree with note created by Wen Coreas PA-C. I reviewed the patient's chart and information with her. I have examined and evaluated the patient. I reviewed relevant clinical information and answered the patient's and/or family' s questions. GARBAGE PERSON Total Time In Follow-Up I spent 20 minutes speaking to the patient in performing examination. I spent 20 minutes reviewing information, preparing the survivorship document, and completing this note. AK Total Time (Attending) In Follow-Up I spent 15 minutes examining and counseling the patient. GARBAGE PERSON Copy To Yareli White.LUCAS; Shivam Hooper MD
== END | disposition home or self-care (01) ==
LOC: C.ONC 13:35
PROVIDERS: ATTEND Physician Assistant Medical
DX: Z08 Encounter for follow-up examination after completed treatment for malignant neoplasm (principal); Z92.3 Personal history of irradiation; Z85.46 Personal history of malignant neoplasm of prostate